=== PATIENT | male | born 1965 | race Caucasian/White ===

== ENCOUNTER 2018-09-20 19:23 | Emergency (ER) | payer OTHER ==
[~2018-09-20] VITALS: Ht 167.6 cm; Wt 77.3 kg
[~2018-09-20 19:23] MED LIST: ERYT1OIN6 RIGHT EYE
[2018-09-20 19:45] VITALS: BP 121/80; PULSE 109; RESP 18; Ht 167.6 cm; Wt 77.3 kg
--- NOTE | 2018-09-20 20:21 | ERD ---
ER Documentation Chief Complaint Chief Complaint R EYE SWELLING, PAIN AND ITCHING SINCE THIS AM WITH DISCHARGE HPI 53-year-old diabetic male woke up today with right eye redness and purulent drainage. No changes to his vision but he does state his eye has been very watery. He has irritation and itchiness. Only mild pain no blurry or double vision. ROS All systems reviewed and are negative except as per history of present illness. Medications Home Meds Active Scripts Erythromycin Base (Erythromycin) 1 Gm Oint...g., 1 APPLIC RIGHT EYE QID for 7 Days Prov:ANGIE BENTON PA-C 09/20/18 Allergies Allergies: Coded Allergies: No Known Allergy (Unverified , 09/20/18) PMhx/Soc Medical and Surgical Hx: pt denies Medical Hx Hx Alcohol Use: No Hx Substance Use: No Hx Tobacco Use: No Smoking Status: Never smoker FmHx Family History: diabetes Physical Exam Vitals temp 97.7, pulse 109, respiration 18, BP 121/80, pulse ox 98% on room air Physical Exam Const: No acute distress Head: Atraumatic Eyes: Right conjunctiva injected, pupils equal round reactive to light, extraocular movements intact, there is some dried purulent drainage around periorbital region, visual acuity in the right eye is 20/50, 20/40 in left eye, 20/40 together ENT: Normal External Ears, Nose and Mouth. Neck: Full range of motion. No meningismus. Resp: Clear to auscultation bilaterally Cardio: Regular rate and rhythm, no murmurs Procedures/MDM 53-year-old male is here with conjunctivitis. Discharged with erythromycin ophthalmic ointment. I doubt any ocular emergency including glaucoma, uveitis, retrobulbar abscess, globe rupture, or others. Patient counseled regarding my diagnostic impression and care plan. Prior to discharge all questions answered. Pt agrees with treatment plan and understands strict return precautions. Pt is instructed to follow up with primary care provider within 24-48 hours. Preca utionary instructions provided including instructions to return to the ER if not improving or for any worsening or changing symptoms or concerns. Departure Diagnosis: Primary Impression: Conjunctivitis Condition: Stable Patient Instructions: Conjunctivitis, Non-Specific Additional Instructions: Call your primary care doctor TOMORROW for an appointment during the next 1-2 days.See the doctor sooner or return here if your condition worsens before your appointment time. ANGIE BENTON PA-C Sep 20, 2018 20:21 TAMRA PARKER DO Sep 29, 2018 15:36
== END 2018-09-20 20:23 | disposition home or self-care (01) ==
LOC: FTE 19:23
DX: H10.9 Unspecified conjunctivitis (principal); E11.9 Type 2 diabetes mellitus without complications
CPT/HCPCS: 99283